=== PATIENT | female | born 1990 | race Caucasian/White ===

== ENCOUNTER 2021-06-23 18:00 | Emergency (ER) | payer OTHER, SELFPAY ==
[2021-06-23 18:05] VITALS: BP 110/65; PULSE 93; RESP 16; TEMP 36.1; O2SAT 99; BMI 24.7
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
--- NOTE | 2021-06-23 21:33 | ED.NAVMDI ---
HPI - Nausea/Vomiting/Diarrhea General Chief complaint: Nausea/Vomiting/Diarrhea Stated complaint: Swelling of hands/nausea x14 days Time Seen by Provider: 06/23/21 18:33 Source: patient Mode of arrival: Ambulatory Limitations: no limitations History of Present Illness HPI Narrative: This is a 30-year-old female comes in with complaint of nausea she states she has intermittently thrown up. She also is concerned about likely she states her hair is not in the back and she thought some bugs are coming out of it. She also states that she has sometimes had spots on her skin that thought made her think she might have a parasite. She has no other complaints at this time. She has taken medications such as antibiotics in the past and midodrine but denies any other medical issues. She states she is homeless. She is seeking a place to stay this evening and something to eat and drink. Patient denies any major surgeries. She does smoke. She uses marijuana. She has allergies to several medications. Related Data Home Medications Medication Instructions Recorded Confirmed acetaminophen 325 mg tablet 650 mg PO PRN #0 11/26/17 Allergies Allergy/AdvReac Type Severity Reaction Status Date / Time oxcarbazepine [OXCARBAZEPINE] Allergy Unknown Unverified 11/16/17 13:10 Sulfa (Sulfonamide Allergy Unknown Unverified 11/16/17 13:10 Antibiotics) [SULFA (SULFONAMIDE ANTIBIOTICS)] zinc Allergy Verified 06/23/21 18:13 Review of Systems Review of Systems ROS Unobtainable: All systems reviewed & are unremarkable except as noted in HPI and below Patient History Social History Smoking Status: Current every day smoker Smoking Status: Current every day smoker Substance Use Type: marijuana Exam Narrative Exam Narrative: GEN: well nourished, slightly disheveled but well appearing female, alert and oriented x 3, patient appears to be in no acute distress. HEENT: Atraumatic, pupils are equal round reactive to light, extraocular movements are intact, nares are clear, TMs are clear with no fluid, there is no conjunctival pallor. Throat is clear without any exudates, erythema, tonsillar enlargement or uvular deviation HEART: Regular rate and rhythm without murmur, clicks, rubs. No carotid bruits, pulses are equal in upper and lower extremities LUNGS:Lungs clear to auscultation, no wheezes, rales, crackles, chest moves symmetrically ABD:bowel sounds normal, soft, non-tender, no guarding, rebound, rigidity, no masses noted, no hepatosplenomegaly :No CVA tenderness MSCL: Non-tender, no muscle atrophy, muscles strength 5/5 upper and lower extremities, full range of motion, normal gait NEURO:CN 2-12 intact, sensation normal SKIN: Patient's hair is not in 1 location on the back of her hair but is not here to the scalp. I do not appreciate any lice or other changes. Her scalp appears clean and intact. The rest of the patient's skin is without rash, erythema or other major skin changes. Patient has several small excoriated wounds on her extremities that appear to be healing or completely healed. Initial Vital Signs Initial Vital Signs: Vital Signs Temperature 97.0 F L 06/23/21 18:05 Pulse Rate 93 H 06/23/21 18:05 Respiratory Rate 16 06/23/21 18:05 Blood Pressure 110/65 06/23/21 18:05 Pulse Oximetry 99 06/23/21 18:05 Course Orders Ordered: ED Orders 06/23/21 18:33 Urine Drug Screen, Rapid Stat 06/23/21 19:23 Consult to FIELD REPRESENTATIVES DIRECTOR - Big Data Solutions Architect Stat Vital Signs Vital signs: Vital Signs - 8 hr 06/23/21 18:05 Temperature 97.0 F L Pulse Rate 93 H Respiratory Rate 16 Blood Pressure 110/65 Pulse Oximetry 99 MDM - Nausea/Vomiting/Diarrhea MDM Narrative Medical decision making narrative: This is a 30-year-old female with multiple complaints patient does have some concern for lice or possibly parasites in her skin. No findings on exam that are consistent with this. She is not a chin some nausea but has eaten and drank several different items of food here in the department. She does state that she is without home or many resources. She does have family locally but they are not allowing her to stay here. Our social media designer did meet with her to discuss options. Patient does not have any other complaints or concerns for myself at this time. Discharge Plan Departure Patient Disposition: Home Clinical Impression: Feared complaint without diagnosis Activity Restrictions/Additional Instructions: Please follow-up with primary care for additional concerns. An option is included below. Prescriptions: No Action acetaminophen 325 MG tablet 650 mg PO PRNQty: 0 0RF Referrals: Babita Tse DO [Physician] -
[2021-06-23 22:01] VITALS: BP 101/53; PULSE 94; O2SAT 96
== END 2021-06-23 22:02 | disposition home or self-care (01) ==
PROVIDERS: Emergency Provider Emergency Medicine
DX: R11.2 Nausea with vomiting, unspecified (principal)
CPT/HCPCS: 99281

== ENCOUNTER 2022-11-30 17:46 | Emergency (ER) | payer OTHER, SELFPAY ==
[2022-11-30 18:10] VITALS: BP 147/85; PULSE 100; RESP 19; TEMP 37.2; O2SAT 99
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
[2022-11-30 19:12] LABS: Add Manual Diff / Slide Review NO; Basophils Absolute Auto 100 /uL (0-100); Basophils Percent Auto 0.8 % (0-2); Eosinophils Absolute Auto 100 /uL (0-450); Eosinophils Percent Auto 1.4 % (2-4); Hematocrit 41.1 % (36-46); Hemoglobin 14.1 g/dL (12.0-16.0); Lymphocytes Absolute Auto 2500 /uL (1100-4500); Lymphocytes Percent Auto 32.2 % (25-40); Mean Corpuscular HGB Conc 34.2 % (30-36); Mean Corpuscular Hemoglobin 27.8 PG (26-34); Mean Corpuscular Volume 81.3 fL (80-100); Monocytes Absolute Auto 600 /uL (0-900); Monocytes Percent Auto 7.3 % (3-14); Neutrophils Absolute Auto 4500 /uL (1500-7000); Neutrophils Percent Auto 58.3 % (50-75); Platelet Count 378 X10^3/uL (150-400); Red Blood Cell Count 5.05 X10^6/uL (4.0-5.2); Red Cell Distribution Width 16.8 % (11.6-14.8); White Blood Cell Count 7.7 X10^3/uL (4.5-11.0)
[2022-11-30 19:14] LABS: Pregnancy Test Serum,Qual Negative (Negative)
[2022-11-30 19:19] LABS: Acetaminophen < 10 ug/mL (10-30); Alanine Aminotransferase 33 IU/L (<35); Albumin Globulin Ratio 1.5 (1.0-2.8); Alkaline Phosphatase 72 U/L (38-126); Aspartate Aminotransferase 31 IU/L (14-36); BUN Creatinine Ratio 16.7 (6-22); Bilirubin Total 0.7 mg/dL (0.2-1.3); Blood Urea Nitrogen 10 mg/dL (7-17); Calcium 9.3 mg/dL (8.4-10.2); Carbon Dioxide 23 mmol/L (22-32); Chloride 101 mmol/L (98-107); Estimated Glomerular Filt Rate > 60 mL/min (>60); Ethanol (ETOH) < 10 mg/dL; Globulin 3.3 g/dL (1.7-4.1); Glucose 92 mg/dL (70-100); HEMOLYSIS 47 (0-50); Potassium 3.8 mmol/L (3.4-5.1); Sodium 135 mmol/L (137-145); Total Protein 8.3 g/dL (6.3-8.2)
[2022-11-30 19:20] LABS: Lipase 40 U/L (23-300); Salicylate < 1.0 mg/dL (<20)
--- NOTE | 2022-11-30 19:20 | PC.NURSE ---
pt changed into scrubs with 4 staff members encouraging her. pt is mumbling. not oriented. Says oh cool,thank you, really. pt is not able to tell me if she has suicidal thoughts. pt wanted to smoke. pt arrived to ER with filthy sweat pants, 2 different sneakers, torn top .. cup. vape, cigarette grant specialist. pt has a small prescription bottle with no label with white clear substance. Jailene DE LA TORRE reported that she saw the patient open and sniff the substance inside. Staff did not open the bottle. bottle is inside a [employer] container and locked up. pt has abrasions and bruises in various areas of her body. pt appears to pick her skin. her hair is matted. pt is fed and is drinking water and juice.
[2022-11-30 19:26] LABS: COVID19 -Nasal RAPID Negative (Negative)
--- NOTE | 2022-11-30 19:53 | ED.GENADULT ---
HPI - General Adult <DO Gemma Devi Last Filed: 12/04/22 07:20> General Chief complaint: Altered Mental Status Stated complaint: BIJAN Time Seen by Provider: 11/30/22 18:06 Source: police Mode of arrival: other Limitations: altered mental status History of Present Illness HPI narrative: Patient is a 32-year-old female who arrives by police for evaluation concern for grave disability. Please see the police BIJAN paperwork for specifics however it appears an over the past several days they have had multiple encounters with the patient with her performing more and more bizarre and inappropriate activities. Patient is unable to provide any HPI. Related Data Home Medications Medication Instructions Recorded Confirmed acetaminophen 325 mg tablet 650 mg PO PRN ##0 11/26/17 Allergies Allergy/AdvReac Type Severity Reaction Status Date / Time oxcarbazepine [OXCARBAZEPINE] Allergy Unknown Unverified 11/16/17 13:10 Sulfa (Sulfonamide Allergy Unknown Unverified 11/16/17 13:10 Antibiotics) [SULFA (SULFONAMIDE ANTIBIOTICS)] zinc Allergy Verified 06/23/21 18:13 Review of Systems <Kamari Miguel DO - Last Filed: 12/04/22 07:20> Review of Systems ROS Unobtainable: Unobtainable due to mental condition Patient History <DO Gemma Devi Last Filed: 12/04/22 07:20> Social History Smoking Status: Current every day smoker Smoking Status: Current every day smoker Substance Use Type: marijuana Exam <DO Gemma Devi Last Filed: 12/04/22 07:20> Initial Vital Signs Initial Vital Signs: Vital Signs Temperature 98.9 F 11/30/22 18:10 Pulse Rate 100 H 11/30/22 18:10 Respiratory Rate 19 11/30/22 18:10 Blood Pressure 147/85 H 11/30/22 18:10 Pulse Oximetry 99 11/30/22 18:10 Oxygen Delivery Method Room Air 11/30/22 18:10 Const Other: Disheveled HENMT Head: normal to inspection and normocephalic Resp Effort & Inspection: normal respiratory effort Cardio Rate: regular rate Neuro Other: Patient is awake however will not answer questions. Extrem Other: No gross deformities <Agusto Cisse DO - Last Filed: 12/02/22 08:48> Initial Vital Signs Initial Vital Signs: Vital Signs Temperature 98.9 F 11/30/22 18:10 Pulse Rate 100 H 11/30/22 18:10 Respiratory Rate 19 11/30/22 18:10 Blood Pressure 147/85 H 11/30/22 18:10 Pulse Oximetry 99 11/30/22 18:10 Oxygen Delivery Method Room Air 11/30/22 18:10 Course <Kamari Miguel DO - Last Filed: 12/04/22 07:20> Orders Ordered: Discontinued Medications Lorazepam (Lorazepam 0.5 Mg Tablet) 2 mg PO NOW ONE Stop: 12/01/22 20:53 Last Admin: 12/01/22 21:09 Dose: 2 mg Documented By: ANN Olanzapine (Olanzapine Odt 10 Mg Tab) 10 mg PO NOW ONE Stop: 11/30/22 22:15 Last Admin: 11/30/22 22:57 Dose: 10 mg Documented By: ANN Olanzapine (Olanzapine Odt 10 Mg Tab) 20 mg PO NOW ONE Stop: 12/01/22 07:58 Last Admin: 12/01/22 08:11 Dose: 20 mg Documented By: NR Olanzapine (Olanzapine Odt 10 Mg Tab) 10 mg PO NOW ONE Stop: 12/01/22 18:26 Last Admin: 12/01/22 19:26 Dose: 10 mg Documented By: ANN Vital Signs Vital signs: Vital Signs - 8 hr 12/01/22 07:45 Pulse Rate 71 Respiratory Rate 16 Blood Pressure 116/68 Pulse Oximetry 99 Oxygen Delivery Method Room Air <Agusto Cisse DO - Last Filed: 12/02/22 08:48> Orders Ordered: Discontinued Medications Lorazepam (Lorazepam 0.5 Mg Tablet) 2 mg PO NOW ONE Stop: 12/01/22 20:53 Last Admin: 12/01/22 21:09 Dose: 2 mg Documented By: ANN Olanzapine (Olanzapine Odt 10 Mg Tab) 10 mg PO NOW ONE Stop: 11/30/22 22:15 Last Admin: 11/30/22 22:57 Dose: 10 mg Documented By: ANN Olanzapine (Olanzapine Odt 10 Mg Tab) 20 mg PO NOW ONE Stop: 12/01/22 07:58 Last Admin: 12/01/22 08:11 Dose: 20 mg Documented By: NR Olanzapine (Olanzapine Odt 10 Mg Tab) 10 mg PO NOW ONE Stop: 12/01/22 18:26 Last Admin: 12/01/22 19:26 Dose: 10 mg Documented By: ANN Vital Signs Vital signs: Vital Signs - 8 hr 12/01/22 07:45 Pulse Rate 71 Respiratory Rate 16 Blood Pressure 116/68 Pulse Oximetry 99 Oxygen Delivery Method Room Air Medical Decision Making <Kamari Miguel, - Last Filed: 12/04/22 07:20> Lab Data Lab results reviewed: Yes I reviewed the patient's lab results. 11/30/22 18:45 11/30/22 18:45 Labs: Lab Results 11/30/22 11/30/22 11/30/22 Range/Units 18:45 18:45 18:45 WBC 7.7 (4.5-11.0) X10^3/uL RBC 5.05 (4.0-5.2) X10^6/uL Hgb 14.1 (12.0-16.0) g/dL Hct 41.1 (36-46) % MCV 81.3 (80-100) fL MCH 27.8 (26-34) PG MCHC 34.2 (30-36) % RDW 16.8 H (11.6-14.8) % Plt Count 378 (150-400) X10^3/uL Neut % (Auto) 58.3 (50-75) % Lymph % (Auto) 32.2 (25-40) % [place] % (Auto) 7.3 (3-14) % Eos % (Auto) 1.4 L (2-4) % Baso % (Auto) 0.8 (0-2) % Neut # (Auto) 4500 (2661-9368) /uL Lymph # (Auto) 2500 (3530-1903) /uL [place] # (Auto) 600 (0-900) /uL Eos # (Auto) 100 (0-450) /uL Baso # (Auto) 100 (0-100) /uL Sodium 135 L (137-145) mmol/L Potassium 3.8 (3.4-5.1) mmol/L Chloride 101 (98-107) mmol/L Carbon Dioxide 23 (22-32) mmol/L BUN 10 (7-17) mg/dL Creatinine 0.60 (0.52-1.04) mg/dL Estimated GFR > 60 (>60) mL/min BUN/Creatinine Ratio 16.7 (6-22) Glucose 92 (70-100) mg/dL Calcium 9.3 (8.4-10.2) mg/dL Total Bilirubin 0.7 (0.2-1.3) mg/dL AST 31 (14-36) IU/L ALT 33 (<35) IU/L Alkaline Phosphatase 72 (38-126) U/L Total Protein 8.3 H (6.3-8.2) g/dL Albumin 5.0 (3.5-5.0) g/dL Globulin 3.3 (1.7-4.1) g/dL Albumin/Globulin Ratio 1.5 (1.0-2.8) Lipase 40 (23-300) U/L TSH (0.47-4.68) uIU/mL Free T4 (0.78-2.19) ng/dL Serum , Qual (Negative) Salicylates < 1.0 (<20) mg/dL U Opiates 300ng/mL cut (Negative) Ur Oxycodone Screen (Negative) Urine Methadone Screen (Negative) Acetaminophen < 10 (10-30) ug/mL Ur Barbiturates Screen (Negative) U Tricyclic Antidepress (Negative) Ur Phencyclidine Scrn (Negative) Ur Amphetamines Screen (Negative) U Methamphetamines Scrn (Negative) Ur MDMA Scrn (Ecstasy) (Negative) U Benzodiazepines Scrn (Negative) Urine Cocaine Screen (Negative) U Marijuana (THC) Screen (Negative) Ethyl Alcohol < 10 ( - 10) mg/dL SARS-CoV-2 (PCR) (Negative) 11/30/22 11/30/22 11/30/22 Range/Units 18:45 18:45 18:45 WBC (4.5-11.0) X10^3/uL RBC (4.0-5.2) X10^6/uL Hgb (12.0-16.0) g/dL Hct (36-46) % MCV (80-100) fL MCH (26-34) PG MCHC (30-36) % RDW (11.6-14.8) % Plt Count (150-400) X10^3/uL Neut % (Auto) (50-75) % Lymph % (Auto) (25-40) % [place] % (Auto) (3-14) % Eos % (Auto) (2-4) % Baso % (Auto) (0-2) % Neut # (Auto) (3270-8526) /uL Lymph # (Auto) (2932-2359) /uL [place] # (Auto) (0-900) /uL Eos # (Auto) (0-450) /uL Baso # (Auto) (0-100) /uL Sodium (137-145) mmol/L Potassium (3.4-5.1) mmol/L Chloride (98-107) mmol/L Carbon Dioxide (22-32) mmol/L BUN (7-17) mg/dL Creatinine (0.52-1.04) mg/dL Estimated GFR (>60) mL/min BUN/Creatinine Ratio (6-22) Glucose (70-100) mg/dL Calcium (8.4-10.2) mg/dL Total Bilirubin (0.2-1.3) mg/dL AST (14-36) IU/L ALT (<35) IU/L Alkaline Phosphatase (38-126) U/L Total Protein (6.3-8.2) g/dL Albumin (3.5-5.0) g/dL Globulin (1.7-4.1) g/dL Albumin/Globulin Ratio (1.0-2.8) Lipase (23-300) U/L TSH 2.14 (0.47-4.68) uIU/mL Free T4 1.36 (0.78-2.19) ng/dL Serum , Qual Negative (Negative) Salicylates (<20) mg/dL U Opiates 300ng/mL cut (Negative) Ur Oxycodone Screen (Negative) Urine Methadone Screen (Negative) Acetaminophen (10-30) ug/mL Ur Barbiturates Screen (Negative) U Tricyclic Antidepress (Negative) Ur Phencyclidine Scrn (Negative) Ur Amphetamines Screen (Negative) U Methamphetamines Scrn (Negative) Ur MDMA Scrn (Ecstasy) (Negative) U Benzodiazepines Scrn (Negative) Urine Cocaine Screen (Negative) U Marijuana (THC) Screen (Negative) Ethyl Alcohol ( - 10) mg/dL SARS-CoV-2 (PCR) (Negative) 11/30/22 12/01/22 Range/Units 19:00 08:05 WBC (4.5-11.0) X10^3/uL RBC (4.0-5.2) X10^6/uL Hgb (12.0-16.0) g/dL Hct (36-46) % MCV (80-100) fL MCH (26-34) PG MCHC (30-36) % RDW (11.6-14.8) % Plt Count (150-400) X10^3/uL Neut % (Auto) (50-75) % Lymph % (Auto) (25-40) % [place] % (Auto) (3-14) % Eos % (Auto) (2-4) % Baso % (Auto) (0-2) % Neut # (Auto) (8465-2712) /uL Lymph # (Auto) (7562-8579) /uL [place] # (Auto) (0-900) /uL Eos # (Auto) (0-450) /uL Baso # (Auto) (0-100) /uL Sodium (137-145) mmol/L Potassium (3.4-5.1) mmol/L Chloride (98-107) mmol/L Carbon Dioxide (22-32) mmol/L BUN (7-17) mg/dL Creatinine (0.52-1.04) mg/dL Estimated GFR (>60) mL/min BUN/Creatinine Ratio (6-22) Glucose (70-100) mg/dL Calcium (8.4-10.2) mg/dL Total Bilirubin (0.2-1.3) mg/dL AST (14-36) IU/L ALT (<35) IU/L Alkaline Phosphatase (38-126) U/L Total Protein (6.3-8.2) g/dL Albumin (3.5-5.0) g/dL Globulin (1.7-4.1) g/dL Albumin/Globulin Ratio (1.0-2.8) Lipase (23-300) U/L TSH (0.47-4.68) uIU/mL Free T4 (0.78-2.19) ng/dL Serum , Qual (Negative) Salicylates (<20) mg/dL U Opiates 300ng/mL cut Negative (Negative) Ur Oxycodone Screen Negative (Negative) Urine Methadone Screen Negative (Negative) Acetaminophen (10-30) ug/mL Ur Barbiturates Screen Negative (Negative) U Tricyclic Antidepress Negative (Negative) Ur Phencyclidine Scrn Negative (Negative) Ur Amphetamines Screen Positive H (Negative) U Methamphetamines Scrn Positive H (Negative) Ur MDMA Scrn (Ecstasy) Negative (Negative) U Benzodiazepines Scrn Negative (Negative) Urine Cocaine Screen Negative (Negative) U Marijuana (THC) Screen Positive H (Negative) Ethyl Alcohol ( - 10) mg/dL SARS-CoV-2 (PCR) Negative (Negative) Point of Care Testing Test Results Negative Point of care testing: Point of Care Testing Test Results Negative MDM Narrative Medical decision making narrative: Patient is medically cleared. There was no signs of trauma. She is been calm. Patient is not in the state of mind where she can answer any questions. DCR evaluated the patient here in the emergency department. He stated that the patient has been detain several times in the past. He stated that she does have history of methamphetamine abuse. He stated that he can not place the patient until we get a urinalysis to evaluate for methamphetamine. He stated that he thinks that the patient needs to stay in the emergency department overnight and re-evaluate in the morning. Patient was given dose of Zyprexa and has been sleeping. <Agusto Cisse, - Last Filed: 12/02/22 08:48> Lab Data Labs: Lab Results 11/30/22 11/30/22 11/30/22 Range/Units 18:45 18:45 18:45 WBC 7.7 (4.5-11.0) X10^3/uL RBC 5.05 (4.0-5.2) X10^6/uL Hgb 14.1 (12.0-16.0) g/dL Hct 41.1 (36-46) % MCV 81.3 (80-100) fL MCH 27.8 (26-34) PG MCHC 34.2 (30-36) % RDW 16.8 H (11.6-14.8) % Plt Count 378 (150-400) X10^3/uL Neut % (Auto) 58.3 (50-75) % Lymph % (Auto) 32.2 (25-40) % [place] % (Auto) 7.3 (3-14) % Eos % (Auto) 1.4 L (2-4) % Baso % (Auto) 0.8 (0-2) % Neut # (Auto) 4500 (3698-4088) /uL Lymph # (Auto) 2500 (9135-6324) /uL [place] # (Auto) 600 (0-900) /uL Eos # (Auto) 100 (0-450) /uL Baso # (Auto) 100 (0-100) /uL Sodium 135 L (137-145) mmol/L Potassium 3.8 (3.4-5.1) mmol/L Chloride 101 (98-107) mmol/L Carbon Dioxide 23 (22-32) mmol/L BUN 10 (7-17) mg/dL Creatinine 0.60 (0.52-1.04) mg/dL Estimated GFR > 60 (>60) mL/min BUN/Creatinine Ratio 16.7 (6-22) Glucose 92 (70-100) mg/dL Calcium 9.3 (8.4-10.2) mg/dL Total Bilirubin 0.7 (0.2-1.3) mg/dL AST 31 (14-36) IU/L ALT 33 (<35) IU/L Alkaline Phosphatase 72 (38-126) U/L Total Protein 8.3 H (6.3-8.2) g/dL Albumin 5.0 (3.5-5.0) g/dL Globulin 3.3 (1.7-4.1) g/dL Albumin/Globulin Ratio 1.5 (1.0-2.8) Lipase 40 (23-300) U/L TSH (0.47-4.68) uIU/mL Free T4 (0.78-2.19) ng/dL Serum , Qual (Negative) Salicylates < 1.0 (<20) mg/dL U Opiates 300ng/mL cut (Negative) Ur Oxycodone Screen (Negative) Urine Methadone Screen (Negative) Acetaminophen < 10 (10-30) ug/mL Ur Barbiturates Screen (Negative) U Tricyclic Antidepress (Negative) Ur Phencyclidine Scrn (Negative) Ur Amphetamines Screen (Negative) U Methamphetamines Scrn (Negative) Ur MDMA Scrn (Ecstasy) (Negative) U Benzodiazepines Scrn (Negative) Urine Cocaine Screen (Negative) U Marijuana (THC) Screen (Negative) Ethyl Alcohol < 10 ( - 10) mg/dL SARS-CoV-2 (PCR) (Negative) 11/30/22 11/30/22 11/30/22 Range/Units 18:45 18:45 18:45 WBC (4.5-11.0) X10^3/uL RBC (4.0-5.2) X10^6/uL Hgb (12.0-16.0) g/dL Hct (36-46) % MCV (80-100) fL MCH (26-34) PG MCHC (30-36) % RDW (11.6-14.8) % Plt Count (150-400) X10^3/uL Neut % (Auto) (50-75) % Lymph % (Auto) (25-40) % [place] % (Auto) (3-14) % Eos % (Auto) (2-4) % Baso % (Auto) (0-2) % Neut # (Auto) (0963-2749) /uL Lymph # (Auto) (4718-6545) /uL [place] # (Auto) (0-900) /uL Eos # (Auto) (0-450) /uL Baso # (Auto) (0-100) /uL Sodium (137-145) mmol/L Potassium (3.4-5.1) mmol/L Chloride (98-107) mmol/L Carbon Dioxide (22-32) mmol/L BUN (7-17) mg/dL Creatinine (0.52-1.04) mg/dL Estimated GFR (>60) mL/min BUN/Creatinine Ratio (6-22) Glucose (70-100) mg/dL Calcium (8.4-10.2) mg/dL Total Bilirubin (0.2-1.3) mg/dL AST (14-36) IU/L ALT (<35) IU/L Alkaline Phosphatase (38-126) U/L Total Protein (6.3-8.2) g/dL Albumin (3.5-5.0) g/dL Globulin (1.7-4.1) g/dL Albumin/Globulin Ratio (1.0-2.8) Lipase (23-300) U/L TSH 2.14 (0.47-4.68) uIU/mL Free T4 1.36 (0.78-2.19) ng/dL Serum , Qual Negative (Negative) Salicylates (<20) mg/dL U Opiates 300ng/mL cut (Negative) Ur Oxycodone Screen (Negative) Urine Methadone Screen (Negative) Acetaminophen (10-30) ug/mL Ur Barbiturates Screen (Negative) U Tricyclic Antidepress (Negative) Ur Phencyclidine Scrn (Negative) Ur Amphetamines Screen (Negative) U Methamphetamines Scrn (Negative) Ur MDMA Scrn (Ecstasy) (Negative) U Benzodiazepines Scrn (Negative) Urine Cocaine Screen (Negative) U Marijuana (THC) Screen (Negative) Ethyl Alcohol ( - 10) mg/dL SARS-CoV-2 (PCR) (Negative) 11/30/22 12/01/22 Range/Units 19:00 08:05 WBC (4.5-11.0) X10^3/uL RBC (4.0-5.2) X10^6/uL Hgb (12.0-16.0) g/dL Hct (36-46) % MCV (80-100) fL MCH (26-34) PG MCHC (30-36) % RDW (11.6-14.8) % Plt Count (150-400) X10^3/uL Neut % (Auto) (50-75) % Lymph % (Auto) (25-40) % [place] % (Auto) (3-14) % Eos % (Auto) (2-4) % Baso % (Auto) (0-2) % Neut # (Auto) (0895-4698) /uL Lymph # (Auto) (8300-3046) /uL [place] # (Auto) (0-900) /uL Eos # (Auto) (0-450) /uL Baso # (Auto) (0-100) /uL Sodium (137-145) mmol/L Potassium (3.4-5.1) mmol/L Chloride (98-107) mmol/L Carbon Dioxide (22-32) mmol/L BUN (7-17) mg/dL Creatinine (0.52-1.04) mg/dL Estimated GFR (>60) mL/min BUN/Creatinine Ratio (6-22) Glucose (70-100) mg/dL Calcium (8.4-10.2) mg/dL Total Bilirubin (0.2-1.3) mg/dL AST (14-36) IU/L ALT (<35) IU/L Alkaline Phosphatase (38-126) U/L Total Protein (6.3-8.2) g/dL Albumin (3.5-5.0) g/dL Globulin (1.7-4.1) g/dL Albumin/Globulin Ratio (1.0-2.8) Lipase (23-300) U/L TSH (0.47-4.68) uIU/mL Free T4 (0.78-2.19) ng/dL Serum , Qual (Negative) Salicylates (<20) mg/dL U Opiates 300ng/mL cut Negative (Negative) Ur Oxycodone Screen Negative (Negative) Urine Methadone Screen Negative (Negative) Acetaminophen (10-30) ug/mL Ur Barbiturates Screen Negative (Negative) U Tricyclic Antidepress Negative (Negative) Ur Phencyclidine Scrn Negative (Negative) Ur Amphetamines Screen Positive H (Negative) U Methamphetamines Scrn Positive H (Negative) Ur MDMA Scrn (Ecstasy) Negative (Negative) U Benzodiazepines Scrn Negative (Negative) Urine Cocaine Screen Negative (Negative) U Marijuana (THC) Screen Positive H (Negative) Ethyl Alcohol ( - 10) mg/dL SARS-CoV-2 (PCR) Negative (Negative) Point of Care Testing Test Results Negative Point of care testing: Point of Care Testing Test Results Negative MDM Narrative Medical decision making narrative: Patient is medically cleared. There was no signs of trauma. She is been calm. Patient is not in the state of mind where she can answer any questions. YUMIKO evaluated the patient here in the emergency department. He stated that the patient has been detain several times in the past. He stated that she does have history of methamphetamine abuse. He stated that he can not place the patient until we get a urinalysis to evaluate for methamphetamine. He stated that he thinks that the patient needs to stay in the emergency department overnight and re-evaluate in the morning. Patient was given dose of Zyprexa and has been sleeping. [0700] (Betito) Patient received in sign out from [Myriam]. I have reviewed the clinical course and performed an independent history and physical exam. She is very reluctant to participate, ramps up quickly and becomes violent and loud. It seems quite clear to me that patient is gravely disabled and I strongly sure the opinion that the patient is most appropriately detained to help further treat and stabilize her condition 1735 - patient escalating rapidly, not responding to verbal de-escalation. Escorted back to room 13, door shut, as she is significant flight risk and potentially risk to patient and staff Please note MOLD YARD CRANE OPERATOR notes for detail, but in sum patient has been detained by DCR and has been accepted at [facility] <Agusto Cisse DO - Last Filed: 12/02/22 08:48> Critical Care Time Critical Care Time: Yes Total Critical Care Time: 45 Attestation: The high probability of a clinically significant, sudden or life threatening deterioration of the [CV] system(s) required my full and direct attention, intervention and personal management. The aggregate critical care time was [45] minutes. This time is in addition to time spent performing reported procedures but includes the following: [x] Data Review and interpretation [x] Patient assessment and monitoring of vital signs [x] Documentation [x] Medication orders and management Discharge Plan Departure Patient Disposition: Xfer Psychiatric Hosp Clinical Impression: Acute psychosis Prescriptions: No Action acetaminophen 325 MG tablet 650 mg PO PRNQty: 0 Stand Alone Forms: Patient Portal/API <DO Gemma Posey Filed: 12/02/22 08:48> Restraint [id number] Evaluation [id number] #1: Date: 12/01/22 Time: 17:45 Patient Appearance: Inappropriate Level of Consciousness: Alert, Awake and Combative Speech Pattern: Animated Mood Description: Angry Ability to Follow Directions: Poor Hallucination Type: None Thought Process: Disorganized Respirations: Normal respiratory rate Cardiac: Regular Rate Circulation: Moves all extremities and Skin warm and dry Behavior necessitating restraint: Agitated, Escalating verbal abuse and Violent Restraint risks explained to patient: Yes Restraint risks explained to family: No Reaction to Intervention: Awake, Resting Quietly Additional Comments: door opened relatively soon after restraints placed, patient responded to efforts and lights turned off
--- NOTE | 2022-11-30 19:56 | PC.NURSE ---
APPOINTMENT SETTER NOTE: pt urinated on bed gave pt a change of clothes and changed pt bed sheets instructed pt if she has to urinate again to use the bathroom this sitter remains at bedside
--- NOTE | 2022-11-30 20:11 | CM.SWNOTE ---
MECHANIC INSULATOR Note MECHANIC INSULATOR originally called [facility] to dispatch DCR at 1820, MECHANIC INSULATOR calls again to f/u regarding DCR dispatch at 2009, it is reported that a DCR had not been dispatched due to patient's incoherence. MECHANIC INSULATOR endorses that patient is altered but communicative and DCR is needed to evaluate patient for hospitalization. Awaiting Dr. Miguel's report and urine for patient. Dr. Miguel Medically cleared patient at 1815. Plan: ASSOCIATE MERCHANDISER to fax remaining documents to DCR, awaiting DCR evaluation to seek [facility]AN placement for patient or determine POC. Josefa Keane, COMMISSARY HELPER
[2022-11-30 20:34] LABS: Thyroid Stimulating Hormone 2.14 uIU/mL (0.47-4.68)
--- NOTE | 2022-11-30 20:49 | PC.NURSE ---
PRODUCT DEVELOPMENT MANAGER note: Patient interacting with things not there. She is talking to something she sees on the ground. She is saying ew! randomly and pointing at the floor.
[2022-11-30 21:00] LABS: Free T4, Direct Thyroxine 1.36 ng/dL (0.78-2.19)
--- NOTE | 2022-11-30 21:11 | PC.NURSE ---
PREFORM MACHINE OPERATOR NOTE: pt mentions she has a kid and wonders if he remembers her pt then proceeds to cry and continues to hallucinate and talk to self this sitter remains at bedside.
--- NOTE | 2022-11-30 22:32 | PC.NURSE ---
STUDENT FINANCIAL SERVICES COUNSELOR NOTE: pt will drop juice or water and slurp it off the floor; pt will see crumbs of her snacks and sniff them; pt also pretends to pick cigarettes off the floor and smoke them. advise pt to take a nap pt sitting in recliner this sitter remains at bedside
[2022-11-30] MEDS: OLANZapine ODT 10 MG TAB PO (22:57)
[2022-11-30 23:00] VITALS: BP 138/82; PULSE 88; RESP 20; TEMP 36.4; O2SAT 98
--- NOTE | 2022-12-01 00:06 | PC.NURSE ---
MANAGER MARKET DEVELOPMENT note: Patient curled into a position on the chair in room, covered her face w/ a blanket.
--- NOTE | 2022-12-01 07:18 | PC.NURSE ---
Zoila tried to collect POC Urine. Patient refused. Will try again at a later time. Patient is sleeping in chair. Will continue to monitor 1:1.
[2022-12-01 07:45] VITALS: BP 116/68; PULSE 71; RESP 16; O2SAT 99
--- NOTE | 2022-12-01 07:59 | PC.NURSE ---
Patient is yelling calling the Nursing staff Edita Merida. I don't know you., It's non of your business RN aware and MD notified. Meds were given and sitter will continue to monitor 1:1. Urine was collected and sent down to lab.
[2022-12-01] MEDS: OLANZapine ODT 10 MG TAB 20 MG PO (08:11)
--- NOTE | 2022-12-01 08:12 | PC.NURSE ---
went into room to give patient morning medications. pt placed pills in applejuice and drank juice. notified physician of this. unable to visualize that pills are not in container. pt does not want me to touch any of the objects in room. pt is rambling, does not make any sense. asking questions about terry on her arms and seeing heads roll across floor. pt talking to someone in room when no one is in room.
--- NOTE | 2022-12-01 08:18 | PC.NURSE ---
called lab about possible toilet water contaminating urine sample. ask if drug screen could still be ran. lab unsure but would try
[2022-12-01 08:28] LABS: Ur Creatinine Normal (Normal); Ur Specific Gravity Normal (Normal); Urine pH Normal (Normal)
[2022-12-01 08:29] LABS: UR Morphine/Opiate cutoff 300 Negative (Negative); Urine Amphetamines Positive (Negative); Urine Barbiturates Negative (Negative); Urine Benzodiazepines Negative (Negative); Urine Cocaine Negative (Negative); Urine MDMA Negative (Negative); Urine Methadone Negative (Negative); Urine Methamphetamines Positive (Negative); Urine Oxycodone Negative (Negative); Urine Phencyclidine Negative (Negative); Urine Tetrahydrocannabinol Positive (Negative); Urine Tricyclic Antidepressant Negative (Negative)
--- NOTE | 2022-12-01 10:05 | PC.NURSE ---
MEDICAL PROFESSIONALS Note: Pt aroused from their sleep and started screaming and yelling. Started to call staff members dumb b*tches and that she hates everyone. Pt continues to scream out profanities and the door was closed due to increasing aggressive behavior. Will continue to monitor patient's increase in agitated behavior.
--- NOTE | 2022-12-01 10:05 | PC.NURSE ---
Patient stated yelling. When sitter approached patient, Patient yelled and started verbally abusing the sitter. Charge nurse decided to close the door until patient calms down. Will continue to monitor 1:1. notified
--- NOTE | 2022-12-01 10:18 | PC.NURSE ---
Patient has calm down and door is open. Patient is continuing to pacing the room. Patient is talking to her self. RN aware. Will continue to monitor 1:1.
--- NOTE | 2022-12-01 10:21 | PC.NURSE ---
called [facility] to update pt information on urine drug screen. they called back to state we need to redispatch DCR. asked for phone number of DCR person i need to call. got information for a Shanti [phone] who is on today for [place] and she states Arely was the one who helped us yesterday, phone number is [phone]. called Shanti and BIANCA to call us back.
--- NOTE | 2022-12-01 17:37 | PC.NURSE ---
@ 1035 responded to call for 'help' from area of room 13. Visualized pt kicking and yelling / attempting to assault nursing staff and run out of room. Pt stopped by staff, Dr. Cisse at door, pt continually attempting to leave, door locked for seclusion / staff safety. As pt escalated so quickly, there was no ability to de-escalate as pt was already assaultive.
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
[2022-12-01] MEDS: OLANZapine ODT 10 MG TAB PO (19:26)
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
[2022-12-01] MEDS: LORazepam 0.5 MG TABLET 2 MG PO (21:09)
[2022-12-01 21:27] VITALS: BP 116/74; PULSE 72; RESP 18; TEMP 36.4; O2SAT 98
== END 2022-12-01 21:10 ==
PROVIDERS: Emergency Medicine; Emergency Provider Emergency Medicine
DX: F23 Brief psychotic disorder (principal); R07.9 Chest pain, unspecified; Z20.822 Contact with and (suspected) exposure to COVID-19
CPT/HCPCS: 36415; 80053; 80305; 80320; 80329; 81025; 83690; 84439; 84443; 84703; 85025; 87635; 93005; 93010; 99285; C9803; G0480